=== PATIENT | female | born 1945 | race Caucasian/White ===

== ENCOUNTER 2018-10-22 09:25 | Outpatient (CLI) | payer MEDICARE ==
--- NOTE | 2018-10-22 10:35 | ULT ---
RIGHT UPPER QUADRANT ULTRASOUND: Date: 10-22-18 History: Abdomen and chest pain. FINDINGS: Liver demonstrates increased echogenicity diffusely likely attributable to diffuse fatty infiltration . Liver otherwise has a normal sonographic appearance. The majority of the pancreas is obscured. Visualized portions of the pancreas have an echogenic appea yahaira but otherwise grossly demonstrates normal sonographic appearance where visualized. The limited visualized portions of the IVC, gallbladder, and right kidney demonstrate a normal sonogr aphic appearance. The right kidney measures 9.3 cm in length. The common duct measures 0.5 cm in diameter which is within normal limits. IMPRESSION: 1. Diffuse fatty infiltration of the liver. 2. No gallbladder calculi are seen. The common duct is normal in caliber. POS: [id number]
== END 2018-10-22 09:26 | disposition home or self-care (01) ==
LOC: BICULT 09:25
PROVIDERS: ATTEND Internal Medicine Gastroenterology
DX: Z12.11 Encounter for screening for malignant neoplasm of colon (principal); R07.89 Other chest pain; K76.0 Fatty (change of) liver, not elsewhere classified
CPT/HCPCS: 76705

== ENCOUNTER 2019-08-29 12:42 | Outpatient (CLI) | payer MEDICARE ==
--- NOTE | 2019-08-29 13:47 | RAD ---
LEFT LEG 2 VIEWS: HISTORY: Pain in the left lower leg. FINDINGS/IMPRESSION: The left tibia and fibula are intact. POS: [facility]
== END 2019-08-29 12:43 | disposition home or self-care (01) ==
LOC: BICRAD 12:42
PROVIDERS: ATTEND Family Medicine
DX: M79.662 Pain in left lower leg (principal)

== ENCOUNTER 2021-05-14 14:59 | Outpatient (CLI) | payer MEDICARE | END 2021-05-14 15:00 | disposition home or self-care (01) | LOC: BICMRI 14:59 | PROVIDERS: ATTEND Family Medicine | DX: M79.601 Pain in right arm (principal); M19.011 Primary osteoarthritis, right shoulder ==

== ENCOUNTER 2021-07-14 09:27 | Outpatient (CLI) | payer MEDICARE | END 2021-07-14 09:28 | disposition home or self-care (01) | LOC: BICMAMMO 09:27 | PROVIDERS: ATTEND Obstetrics & Gynecology | DX: Z12.31 Encounter for screening mammogram for malignant neoplasm of breast (principal) | CPT/HCPCS: 77063; 77067 ==

== ENCOUNTER 2021-10-11 16:08 | Outpatient (CLI) | payer MEDICARE | END 2021-10-11 16:09 | disposition home or self-care (01) | LOC: BICRAD 16:08 | PROVIDERS: ATTEND Family Medicine | DX: M25.531 Pain in right wrist (principal); M79.644 Pain in right finger(s); S62.001A Unspecified fracture of navicular [scaphoid] bone of right wrist, initial encounter for closed fracture ==

== ENCOUNTER 2021-12-01 10:39 | Outpatient (CLI) | payer MEDICARE | END 2021-12-01 10:40 | disposition home or self-care (01) | LOC: BICCT 10:39 | PROVIDERS: ATTEND Orthopaedic Surgery Hand Surgery | DX: S62.001G Unspecified fracture of navicular [scaphoid] bone of right wrist, subsequent encounter for fracture with delayed healing (principal) ==

== ENCOUNTER 2022-02-11 12:32 | Outpatient (CLI) | payer MEDICARE | END 2022-02-11 12:33 | disposition home or self-care (01) | LOC: BICCT 12:32 | PROVIDERS: ATTEND Orthopaedic Surgery Hand Surgery | DX: S62.001G Unspecified fracture of navicular [scaphoid] bone of right wrist, subsequent encounter for fracture with delayed healing (principal); S52.514 Nondisplaced fracture of right radial styloid process ==

== ENCOUNTER 2022-07-15 10:40 | Outpatient (CLI) | payer MEDICARE | END 2022-07-15 10:41 | disposition home or self-care (01) | LOC: BICMRI 10:40 | PROVIDERS: ATTEND Family Medicine | DX: M54.12 Radiculopathy, cervical region (principal); M48.02 Spinal stenosis, cervical region | CPT/HCPCS: 72141 ==

== ENCOUNTER 2022-07-15 11:51 | Outpatient (CLI) | payer MEDICARE | END 2022-07-15 11:52 | disposition home or self-care (01) | LOC: BICMAMMO 11:51 | PROVIDERS: ATTEND Radiology Diagnostic Radiology | DX: Z12.31 Encounter for screening mammogram for malignant neoplasm of breast (principal); N64.89 Other specified disorders of breast | CPT/HCPCS: 77063; 77067 ==

== ENCOUNTER 2022-07-25 13:48 | Outpatient (CLI) | payer MEDICARE | END 2022-07-25 13:49 | disposition home or self-care (01) | LOC: BICMAMMO 13:48 | PROVIDERS: ATTEND Obstetrics & Gynecology | DX: R92.8 Other abnormal and inconclusive findings on diagnostic imaging of breast (principal); R92.2 Inconclusive mammogram | CPT/HCPCS: 76642; 77065; G0279 ==